=== PATIENT | female | born 1965 | race Two or more races ===

== ENCOUNTER → 2018-10-21 | Outpatient (CLI) | payer OTHER ==
[2018-07-22 11:00] VITALS: BP 160/89
[~2018-10-21] MED LIST: ACET325T9 PO; CHOL100013 PO; DEXA4TAB63 PO; DOCU-109 PO; FERR325T14 PO; LORA1TAB PO; NAPR-695 PO; OXYC1TAB15 PO; Pantoprazole PO; TAMO20TA PO; [UNRECOGNIZED DRUG - OTHER]
--- NOTE | 2018-10-21 13:32 | RAD ---
Examination: CT PELVIS WO CONTRAST History: H/O BREAST CA BONE METS BILAT HIP PAIN NO CONTRAST PREV SENT Comparison/Correlation: CT chest abdomen pelvis with contrast 07/16/2018 Findings: Axial images of pelvis were obtained without contrast. Sagittal and coronal reformatted images were provided. Fibroid uterus is noted. No pelvic free fluid. Diverticulosis of the colon identified. Appendix is normal. No enlarged pelvic lymph nodes. Urinary bladder is partially decompressed. Diffuse sclerotic and lytic metastatic involvement of the spine, pelvic bones, proximal femora again noted. Mass with pathologic fracture involves the superior right pubic symphysis is present corresponding to findings on previous exam. Longitudinal displacement of the fracture site to 0.7 cm noted and greater in the interval. Mass measures up to 2.9 cm diameter. Displaced fracture at the right inferior pubic ramus is also present. Nondisplaced fracture through the inferior aspect of the left iliac bone extends to the sacroiliac joint. This is best seen on coronal image 59 of series 4 and axial image 37 of series 2. No definite or significant soft tissue mass component of the sacrum is identified in the interval. Decreased soft tissue mass component of the right posterior column noted in the interval. Impression: Increase in displacement of the pathologic fracture involving the right superior pubic ramus since the prior exam. Mass component at this site is more evident. Right inferior pubic ramus fracture with displacement is also evident in the interval. Left lower iliac wing fracture is delineated in the interval. Previously seen soft tissue mass involvement of the superior sacrum bilaterally is significantly decreased in the interval. No significant soft tissue mass component definitely seen. Decreased soft tissue mass involvement of the right posterior column of the acetabulum. Extensive sclerotic and lytic involvement of all bony structures again noted. PQRS Compliance Statement: One or more of the following individualized dose reduction techniques were utilized for this examination: 1. Automated exposure control 2. Adjustment of the mA and/or kV according to patient size 3. Use of iterative reconstruction technique Electronically signed by: Slava Ford MD (10/21/2018 1:29 PM) [facility]
== END | disposition home or self-care (01) ==
LOC: CT 09:35
PROVIDERS: ATTEND Radiology Radiation Oncology
DX: C79.51 Secondary malignant neoplasm of bone (principal); C50.919 Malignant neoplasm of unspecified site of unspecified female breast; M84.454A Pathological fracture, pelvis, initial encounter for fracture; D25.9 Leiomyoma of uterus, unspecified; K57.30 Diverticulosis of large intestine without perforation or abscess without bleeding
CPT/HCPCS: 72192; G0463

== ENCOUNTER → 2018-11-16 | Outpatient (CLI) | payer OTHER ==
[2018-07-22 11:00] VITALS: BP 160/89
[~2018-11-16] MED LIST changes: +CONTRAST GIVEN. MC PRN; +IOHEXOL 240 MG/ML 50ML VIAL. PO ONE; +IOHEXOL 300 MG/ML 100ML VIAL. IV ONE
--- NOTE | 2018-11-17 09:47 | RAD ---
CT of the chest and abdomen with contrast, 11/16/2018: History: Metastatic breast cancer Multidetector CT imaging was performed following oral and IV administration of contrast. Comparison is made to a study from 07/16/2018. A 3.2 cm left breast mass is present. It measured 3.5 cm on the previous study. There is a 3.0 cm left axillary lymph node which measured 3.9 cm on the previous study. No mediastinal adenopathy is seen. There is a small amount of pericardial fluid extending into the superior pericardial recesses. There are multiple bilateral pulmonary nodules. Some of these are slightly smaller, for example a 5.8 mm nodule seen posterolaterally in the right lower lobe on the previous study now measures 4.9 mm. The small left pleural effusion evident on the previous study has decreased in size with only small amount of residual fluid in the posterior gutter. The small right pleural effusion has resolved. No hepatic abnormality is seen. The gallbladder is unremarkable. The pancreas shows no abnormality. The spleen is of normal size. No renal or adrenal abnormality is detected. The visualized bowel loops are unremarkable. No free fluid is evident in the abdomen. There is extensive mixed lytic and blastic osseous metastatic disease as previously described. Some of the lytic lesions have become more sclerotic, best seen along the iliac crests and in multiple vertebral bodies. Again noted are vertebral compression deformities at T12, T5 and T6. IMPRESSION: 1. The left breast mass has decreased slightly in size. 2. Left axillary adenopathy has improved. 3. Tiny bilateral pulmonary metastases persist, some of which have decreased slightly in size. 4. Resolving pleural effusions. 5. Extensive mixed lytic and blastic osseous metastatic disease, with many of the lytic lesions having become more sclerotic compatible with a component of healing. PQRS Compliance Statement: One or more of the following individualized dose reduction techniques were utilized for this examination: 1. Automated exposure control 2. Adjustment of the mA and/or kV according to patient size 3. Use of iterative reconstruction technique
--- NOTE | 2018-11-17 09:49 | RAD ---
Radionuclide bone scan, 11/16/2018: HISTORY: Breast cancer Following IV injection of 25 mCi of technetium 99m MDP, whole body imaging was performed. Comparison is made to an exam from 07/16/2018. There are numerous foci of abnormal activity in the pelvis, spine, skull, multiple ribs and long bones including both humeri and femurs. The degree of abnormal osseous uptake at these sites has increased since the previous study. The recent CT study demonstrated that many previous extensive lytic lesions are demonstrated increasing sclerosis. The current radionuclide findings suggest a flare phenomenon related to partial healing of metastasis rather than progression of disease. IMPRESSION: Multifocal osseous metastatic disease with increasing activity at multiple sites, probably representing a flare phenomena. Electronically signed by: Zack Ovalle MD (11/16/2018 4:08 PM) [facility]
== END | disposition home or self-care (01) ==
LOC: NM 08:47
PROVIDERS: ATTEND Internal Medicine Hematology & Oncology
DX: C79.51 Secondary malignant neoplasm of bone (principal); C78.00 Secondary malignant neoplasm of unspecified lung; C50.919 Malignant neoplasm of unspecified site of unspecified female breast; J90 Pleural effusion, not elsewhere classified; M43.8X4 Other specified deforming dorsopathies, thoracic region; R91.8 Other nonspecific abnormal finding of lung field; R59.0 Localized enlarged lymph nodes
CPT/HCPCS: 71260; 74160; 78306; A9503; Q9966; Q9967

== ENCOUNTER → 2019-02-09 | Outpatient (CLI) | payer OTHER ==
[2018-07-22 11:00] VITALS: BP 160/89
[~2019-02-09] MED LIST changes: -IOHEXOL 240 MG/ML 50ML VIAL. PO ONE; +OXYC1TAB19 PO
--- NOTE | 2019-02-09 11:23 | RAD ---
EXAM: CT Chest, Abdomen and Pelvis with IV contrast CLINICAL HISTORY: Breast cancer, follow-up COMPARISON: CT 11/16/2018, 07/16/2018 TECHNIQUE: Helical CT of the chest, abdomen and pelvis was performed following the administration of intravenous contrast. Axial, coronal and sagittal reformatted images were generated. ---PQRS compliance statement - One or more of the following individualized dose reduction techniques were utilized for this study: 1. Automated exposure control 2. Adjustment of the mA and/or kV according to patient size 3. Use of iterative reconstruction technique--- FINDINGS: Chest: Heart is not enlarged. No pericardial effusion. No mediastinal or hilar lymphadenopathy. No right axillary lymphadenopathy. Enlarged left axillary lymph node measures 2.7 x 2.6 cm, previously when measured in a similar fashion measures 3 x 2.4 cm. Differences may be related to scan plane. Left breast mass measures 3 x 2.3 cm, previously 3.2 x 2.3 cm. Again this is likely stable and differences may be related to scan plane. Small left pleural effusion. No pneumothorax. Central airways are grossly patent. Numerous bilateral lung nodules are seen, measuring 6 mm or less in size and grossly stable. For example a right lower lobe lung nodule measures 5 mm (series 2 image 32), stable. Abdomen and Pelvis: Relative hepatic hypoattenuation may be seen with hepatic steatosis. Gallbladder is normal. No biliary ductal dilatation. Pancreas is unremarkable. Spleen is normal in appearance. Adrenal glands are unremarkable. Symmetric nephrograms. No focal renal lesion. No hydronephrosis. No hydroureter. Diffuse bladder wall thickening may be seen with cystitis. No abdominal or pelvic lymphadenopathy. Atherosclerotic calcifications of the main branches are seen. A relatively hypodense left uterine lesion measures up to 3 cm, possibly degenerating fibroid given the dense calcifications or adnexal cystic structure Bones: Numerous lytic and sclerotic lesions are seen throughout the visualized osseous structures consistent with metastatic disease. Associated pathologic fracture of the right superior pubic ramus and pubic body is unchanged. Multiple subacute to chronic left rib fractures are seen. Height loss at multiple vertebral bodies is grossly stable, pathologic compression fractures. IMPRESSION: 1. The left breast mass and enlarged left axillary lymph node are grossly stable in size accounting for differences in scan plane/technique. 2. No mediastinal or hilar lymphadenopathy. No abdominal or pelvic lymphadenopathy. 3. Numerous bilateral lung nodules are stable in size. 4. Small left pleural effusion. 5. Diffuse bladder wall thickening may be seen with cystitis. 6. Hepatic hypoattenuation may be seen with hepatic steatosis. 7. Degenerating uterine fibroid versus adnexal cystic lesion. 8. s numerous lytic and blastic skeletal lesions with pathologic fractures of the right superior pubic ramus/pubic body, several left ribs and multiple vertebral bodies are grossly unchanged. Electronically signed by: Paul Muller MD (02/09/2019 11:21 AM) [facility]
--- NOTE | 2019-02-09 14:38 | RAD ---
Nuclear medicine whole body bone scan History: Breast cancer, complains of back pain. Comparison: Whole-body bone scan November 16, 2018 and July 16, 2018. CT chest abdomen pelvis with contrast, February 09, 2019. Technique: Examination performed after intravenous administration of 25 mCi Technetium 99m MDP. Images of the whole body were obtained in the anterior and posterior projections. Findings: Numerous foci of increased tracer uptake of the calvarium, proximal appendicular skeleton, pelvis, thoracolumbar spine, scapulae, and multiple ribs are redemonstrated. The extent of involvement has increased from prior study. There is only faint tracer uptake in the kidneys and soft tissues compatible with SuperScan appearance. IMPRESSION: Interval worsening of diffuse osteoblastic metastases. Electronically signed by: Romeo Tierney MD (02/09/2019 2:35 PM) [email or web address]
== END | disposition home or self-care (01) ==
LOC: NM 14:17
PROVIDERS: ATTEND Internal Medicine Hematology & Oncology
DX: C79.51 Secondary malignant neoplasm of bone (principal); C50.919 Malignant neoplasm of unspecified site of unspecified female breast; J90 Pleural effusion, not elsewhere classified; N63.20 Unspecified lump in the left breast, unspecified quadrant; R59.0 Localized enlarged lymph nodes; R91.8 Other nonspecific abnormal finding of lung field; M84.454D Pathological fracture, pelvis, subsequent encounter for fracture with routine healing; M84.48XD Pathological fracture, other site, subsequent encounter for fracture with routine healing
CPT/HCPCS: 71260; 74177; 78306; A9503; Q9967

== ENCOUNTER → 2019-07-06 | Outpatient (CLI) | payer OTHER ==
[2018-07-22 11:00] VITALS: BP 160/89
[~2019-07-06] MED LIST changes: +ANAS1TAB47 PO; +CALC-98 PO; -IOHEXOL 300 MG/ML 100ML VIAL. IV ONE; +LORA-434 PO; +OXYC-411 PO
[2019-07-06] MEDS: IOHEXOL 240 MG/ML 50ML VIAL. PO ONE (09:00)
[2019-07-06] MEDS: IOHEXOL 300 MG/ML 100ML VIAL. IV ONE (09:00)
--- NOTE | 2019-07-07 09:25 | RAD ---
Examination: CT CHEST ABD PELVIS W/CONTRAST History: Metastatic breast cancer Comparison/Correlation: 02/09/2019 CT chest abdomen and pelvis with contrast Findings: Axial images of the chest, abdomen, and pelvis were obtained following IV contrast. Oral contrast was also administered. Sagittal and coronal reformatted images were provided. Very small pleural effusions are present. No new enlarged thoracic lymph nodes. Posterolateral right superior apical 0.35 cm diameter nodule abuts the pleura and is increased in size and interval. Multiple punctate nodules in both lung garcia are again noted. Right lower lung field 0.6 cm diameter nodule is present and appears slightly increased previous exam although calcification is noted within it. Left breast mass is again identified without significant change in size measuring up to 3 cm in maximum diameter by 2 cm in the axial plane. Enlarged left axillary lymph node again identified measuring up to 2.5 cm in diameter without unchanged. Liver, spleen, pancreas, adrenal glands, and kidneys are normal. The gallbladder fossa is unremarkable. No enlarged abdominal or pelvic lymph nodes. Fibroid involvement of the uterine fundus noted. No enlarged abdominal or pelvic lymph nodes. Moderate quantity of stool in colon noted. No ascites or pelvic free fluid. Extensive sclerotic and lytic bony metastases throughout are noted. Old rib fractures are present. Old right pubic ring fracture noted. Compression deformities of vertebral bodies at multiple levels of the thoracic and lumbar spine again noted. Impression: Very small pleural effusions. Increased size of a right posterolateral superior apical pulmonary nodule abutting the pleura. No change in left breast mass with left axillary enlarged lymph node. Extensive lytic and sclerotic bony metastases again seen without definite change. Old fractures again seen. PQRS Compliance Statement: One or more of the following individualized dose reduction techniques were utilized for this examination: 1. Automated exposure control 2. Adjustment of the mA and/or kV according to patient size 3. Use of iterative reconstruction technique Electronically signed by: Slava Ford MD (07/07/2019 9:22 AM) [facility]
--- NOTE | 2019-07-07 09:31 | RAD ---
Examination: BONE SCAN WHOLE BODY History: Breast cancer with metastases Comparison/Correlation: 02/09/2019 whole-body bone scan Findings: 25 mCi technetium 99m MDP was intravenously administered for purposes of total body bone scintigraphy. Numerous foci of uptake involving bony structures again noted involving numerous sites of the axial skeleton as well as appendicular skeleton. Multiple sites of intense uptake involving the ribs noted bilaterally mild increase in extent of uptake involving the lower ribs noted while there is slight increase in uptake of the upper ribs. There is increased uptake involving the right humerus diffusely in the interval. Increased uptake involving the left proximal and mid humeral shaft actually sites noted. Significant increase uptake involving the right and left femoral shafts noted. Uptake involving the lower thoracic spine is slightly improved. Uptake involving lumbar spine is similar to previous exam. No definite uptake involving the kidneys or urinary bladder. Impression: Increase osteoblastic metastatic involvement of the humeral shaft bilaterally. Increased uptake involving the femoral shaft bilaterally and lower ribs bilaterally. Mild improvement in uptake involving the lower thoracic spine and decreased uptake of upper ribs. Lack of uptake of radiotracer involving kidneys and urinary bladder compatible with superscan noted in the interval. Electronically signed by: Slava Ford MD (07/07/2019 9:28 AM) [facility]
== END | disposition home or self-care (01) ==
LOC: NM 09:51
PROVIDERS: ATTEND Internal Medicine Hematology & Oncology
DX: C79.51 Secondary malignant neoplasm of bone (principal); C50.912 Malignant neoplasm of unspecified site of left female breast; J90 Pleural effusion, not elsewhere classified; N63.20 Unspecified lump in the left breast, unspecified quadrant; R91.8 Other nonspecific abnormal finding of lung field; R59.0 Localized enlarged lymph nodes
CPT/HCPCS: 71260; 74177; 78306; A9503; Q9966; Q9967

== ENCOUNTER → 2019-09-10 | Outpatient (CLI) | payer OTHER ==
[2018-07-22 11:00] VITALS: BP 160/89
[~2019-09-10] MED LIST changes: -CONTRAST GIVEN. MC PRN; +IOHEXOL 240 MG/ML 50ML VIAL. PO ONE; +IOHEXOL 300 MG/ML 100ML VIAL. IV ONE
--- NOTE | 2019-09-10 11:48 | RAD ---
CT CHEST ABD PELVIS W/CONTRAST Indication: Breast cancer Technique: Postcontrast CT imaging was performed of the chest, abdomen, pelvis, multiplanar reconstruction images submitted. Oral contrast was also given. One or more of the following individualized dose reduction techniques were utilized for this examination: 1. Automated exposure control 2. Adjustment of the mA and/or kV according to patient size 3. Use of iterative reconstruction technique. Comparison: July 06, 2019; February 09, 2019 CHEST: Findings: Very small dependent pleural effusions bilaterally are somewhat larger. There is new focus of subpleural nodular density of the left upper lobe posteriorly image 9 series 2 about 1.8 cm transverse by 1.3 cm AP. Left lower lobe nodule image 46 series 2 up to about 1.2 cm is larger as previously about 0.9 cm on the June exam. There are multiple other scattered nodules bilaterally which overall more numerous and larger than the [place] exam. For example a dominant right lower lobe nodules image 31 series 2 measures about 0.6 cm versus previously 0.5 cm and another right lower lobe nodule about 0.5 cm versus previously 0.4 cm image 30. Left axillary greg mass about 2.2 cm AP by 2.1 cm transverse is smaller than [place] exam when measured about 2.7 cm AP by 2.6 cm transverse. There is again evidence of extensive osseous metastatic disease. Vertebral body stature is unchanged compared with more recent exam, again degree of height loss of T12, T6, T5 and T2 (progression of T2 vertebral body height loss since the January exam). There is again pathologic fracture of the lateral aspect of left clavicle as seen on more recent exam although developed since the [place] exam. IMPRESSION: 1. There is a new left upper lobe pulmonary nodule, overall size and number pulmonary nodules greater than [place] exam. Very small bilateral pleural effusions are somewhat larger. There is similar left breast mass, left axillary greg mass smaller than the [place] exam. 2. There is again evidence of extensive osseous metastatic disease, multilevel or atrophy vertebral body height loss similar to more recent exam although has progressed at T2 since older exam. There is pathologic fracture of the lateral aspect of the left clavicle. Abdomen pelvis FINDINGS: No new focal abnormality is identified of the liver, pancreas, or spleen. Gallbladder is present without obvious intraluminal abnormality by CT. There is no new adrenal nodularity. Both kidneys enhance, no hydronephrosis. Bowel is not significantly dilated. There is no free fluid or free air. There is again diverticulosis of the descending and sigmoid colon and variable retained stool in the colon. There is partially calcified mass of the left uterus as seen previously. This appearance of degree of urinary bladder wall thickening as seen previously. There is again evidence of extensive osseous metastatic disease. There is old fracture deformity of the right pubic body as seen previously. Vertebral body stature is unchanged. IMPRESSION: 1. There is again evidence of extensive osseous metastatic disease. No new abnormality is identified of the abdomen or pelvis. 2. There is again partially calcified left uterine mass which may be a fibroid. Electronically signed by: Germain Paniagua MD (09/10/2019 11:45 AM) [id number]
--- NOTE | 2019-09-10 15:21 | RAD ---
Whole body bone scan History: 54-year-old woman with history of breast cancer and low back pain and upper back pain. History of right pelvic fracture or degenerative 2019 with no known injury. Comparison: Chest abdomen pelvis CT performed same day. Procedure: 25 mCI of Tc 99m MDP was injected intravenously and delayed scintigraphic images were obtained of the skeletal system. Findings: Diffuse mottled uptake throughout the skeletal system is present including both the axial and appendicular skeleton but most conspicuously in the upper lumbar spine at the approximate L2 and L3 levels. Additional imaging of the pelvis reveals uptake in the right iliac wing and along bilateral sacroiliac joints. Overall pattern of uptake on bone scan corresponds with the diffuse mottled sclerosis evidence on CT and is most suggestive of metastatic disease although superimposed acute fractures would be difficult to exclude.. Impression: 1. Extensive osseous metastases. Electronically signed by: Cesario Rey MD (09/10/2019 3:18 PM) [id number]
== END | disposition home or self-care (01) ==
LOC: NM 08:43
PROVIDERS: ATTEND Internal Medicine Hematology & Oncology
DX: C50.912 Malignant neoplasm of unspecified site of left female breast (principal); C79.51 Secondary malignant neoplasm of bone; N85.8 Other specified noninflammatory disorders of uterus; M84.412A Pathological fracture, left shoulder, initial encounter for fracture; K57.30 Diverticulosis of large intestine without perforation or abscess without bleeding; J90 Pleural effusion, not elsewhere classified; R91.1 Solitary pulmonary nodule; R91.8 Other nonspecific abnormal finding of lung field
CPT/HCPCS: 71260; 74177; 78306; A9503; Q9966; Q9967

== ENCOUNTER → 2020-02-09 | Outpatient (CLI) | payer OTHER ==
[2018-07-22 11:00] VITALS: BP 160/89
[~2020-02-09] MED LIST changes: +CONTRAST GIVEN. MC PRN; -OXYC-411 PO; +OXYC1TAB20 PO
--- NOTE | 2020-02-09 13:34 | RAD ---
CT CHEST ABD PELVIS W/CONTRAST Indication: Metastatic breast cancer Technique: Postcontrast CT imaging was performed of the chest, abdomen, pelvis, multiplanar reconstruction images submitted. Oral contrast was also given. One or more of the following individualized dose reduction techniques were utilized for this examination: 1. Automated exposure control 2. Adjustment of the mA and/or kV according to patient size 3. Use of iterative reconstruction technique. Comparison: September 10, 2019. CHEST: Findings: The previously seen pulmonary nodules are overall smaller and less numerous. More largest residual right lower lobe nodules measures about 0.4 to 0.5 cm images 32 series 2, previously about 0.7 cm largest nodule right upper lobe measures about 0.4 cm image 33, previously about 0.5 cm. Previously seen new focus of subpleural left upper lobe density near the apex has resolved. No new pulmonary nodularity is identified. There is no significant pleural pericardial fluid or pneumothorax. There is no new infiltrate. There is again evidence of extensive osseous metastatic disease. There is again degree of height loss T12, T6, T5, T2 vertebral bodies as seen previously. There is again fracture of the left lateral clavicle. No new significant chest lymphadenopathy is identified. There is again large left axillary greg mass about 2 cm AP by 2.1 cm transverse by 3 cm cc, not significantly changed. Left breast mass about 2.7 cm x 1.8 cm and axial oblique dimensions is similar. There is again enlargement of the left thyroid gland with intrathoracic extent. IMPRESSION: 1. Previously seen pulmonary nodules are smaller and less numerous. There is no new chest lymphadenopathy, similar enlarged left axillary greg mass. There is similar left breast mass. 2. There is again extensive osseous metastatic disease. There is similar degree of thoracic vertebral body height loss. Abdomen pelvis FINDINGS: No new abnormality is identified of the liver, spleen, or pancreas. Both kidneys enhance, no hydronephrosis. There is no adrenal nodularity. Bowel is not dilated. There is no new free fluid or free air. There is again partially calcified uterine lesion. There is variable retained stool in the colon. There is again extensive osseous metastatic disease. Lumbar vertebral body stature is similar. There is again old fracture of the right pubic body/right superior pubic ramus. IMPRESSION: 1.There is again extensive osseous metastatic disease. There is no CT evidence of new metastatic disease to the abdomen or pelvis. 2. There is again partially calcified uterine mass, likely fibroid. Electronically signed by: Germain Paniagua MD (02/09/2020 1:31 PM) [id number]
--- NOTE | 2020-02-09 16:59 | RAD ---
Whole-body bone scan INDICATION: 55-year-old woman with metastatic breast cancer. COMPARISON: Whole body bone scan 09/10/2019 TECHNIQUE: Following an appropriate delay after IV administration of 26 mCi of technetium labeled MDP radiopharmaceutical (3 hours), imaging of the skeletal system was performed in the anterior and posterior planes. FINDINGS: Similar pattern of diffuse skeletal uptake in both the axial and appendicular skeleton is present, most conspicuously in the upper lumbar spine at approximately L2 on L3 as well as in the right humeral shaft and bilateral proximal femoral shafts. No new abnormal foci of uptake identified. IMPRESSION: Similar findings of diffuse osseous metastatic disease. Electronically signed by: Cesario Rey MD (02/09/2020 4:56 PM) [id number]
== END | disposition home or self-care (01) ==
LOC: NM 09:59
PROVIDERS: ATTEND Internal Medicine Hematology & Oncology
DX: C50.919 Malignant neoplasm of unspecified site of unspecified female breast (principal); R91.1 Solitary pulmonary nodule; N63.20 Unspecified lump in the left breast, unspecified quadrant; E04.9 Nontoxic goiter, unspecified; N85.9 Noninflammatory disorder of uterus, unspecified; M48.16 Ankylosing hyperostosis [Forestier], lumbar region
CPT/HCPCS: 71260; 74177; 78306; A9503; Q9966; Q9967

== ENCOUNTER → 2020-06-07 | Outpatient (CLI) | payer OTHER ==
[2018-07-22 11:00] VITALS: BP 160/89
--- NOTE | 2020-06-07 15:33 | RAD ---
EXAM: CT Chest, Abdomen and Pelvis with IV contrast CLINICAL HISTORY: Reason: breast cancer / Spl. Instructions: omni 300 75ml omni 240 50ml / History: COMPARISON: None. TECHNIQUE: Helical CT of the chest, abdomen and pelvis was performed following the administration of intravenous contrast. Axial, coronal and sagittal reformatted images were generated. ---PQRS compliance statement - One or more of the following individualized dose reduction techniques were utilized for this study: 1. Automated exposure control 2. Adjustment of the mA and/or kV according to patient size 3. Use of iterative reconstruction technique--- FINDINGS: Chest: Heart is mildly enlarged. Physiologic pericardial fluid. Trace pleural effusions bilaterally. No pneumothorax. Asymmetric enlargement of the left thyroid without discrete dominant mass is stable in appearance. No mediastinal or hilar lymphadenopathy. Left breast mass measures 2.5 x 1.8 x 2.3 cm, essentially stable. A left axillary greg mass measures approximately 3 x 1.5 cm, previously 3 x 1.6 cm when remeasured in a similar fashion on the coronal planes. No new axillary lymphadenopathy. Multiple bilateral lung nodules are again seen. 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 5 mm right upper lobe lung nodule (series 2 image 30) is stable. 4 mm peripheral left lower lobe lung nodule (series 2 image 43) is new. Abdomen and Pelvis: Liver and biliary system: No focal liver lesion. Liver is mildly enlarged measuring 19.3 cm in length. Gallbladder is normal. No biliary ductal dilatation. Spleen: Unremarkable Pancreas: Unremarkable Adrenal glands: Unremarkable Kidneys: Symmetric nephrograms. No focal renal lesion. No hydronephrosis. No hydroureter. Bladder wall thickening, likely cystitis. Lymph nodes/retroperitoneum: No abdominal or pelvic lymphadenopathy. Vessels: Aorta is normal in caliber with intermittent atherosclerotic calcifications. Bowel/Peritoneal cavity: Sigmoid diverticulosis without evidence for acute diverticulitis. Moderate right colonic stool content. No bowel obstruction. Definite pericecal inflammatory changes are seen. Calcified uterine fibroids are noted. No abdominal or pelvic ascites. Findings: Extensive blastic osseous metastatic disease. Left acetabular lucent lesion has increased in size measuring 2.4 x 2.1 cm, previously 1.9 x 1.8 cm, now with articular cortex violation and soft tissue component, new. Additional lucent lesions are seen, some of which have increased in size, for instance in the right clavicle and sternum. Chronic left clavicle fracture. Multiple pathologic chronic appearing left rib fractures are again seen. Old right pubic rami fractures without discrete bony bridging, stable. Stable vertebral body height loss. IMPRESSION: 1. Stable left breast and left axillary greg mass. 2. Multiple bilateral lung nodules are stable, although a single new 4 mm peripheral left lower lobe lung nodule is seen. Recommend close attention on follow-up. 3. Blastic metastatic disease is essentially stable however several lucent/lytic lesions have increased in size. The left acetabular lucent lesion is most prominent, now with soft tissue extension, suggesting progression of osseous metastatic disease. 4. Bladder wall thickening, likely cystitis. Electronically signed by: Paul Muller MD (06/07/2020 3:30 PM) SHANON
--- NOTE | 2020-06-07 16:59 | RAD ---
Examination: BONE SCAN WHOLE BODY History: Breast cancer Comparison/Correlation: 02/09/2020 bone scan Findings: 25 mCi technetium 99m MDP was intravenously administered for purposes of whole body bone scintigraphy. Extensive radiotracer uptake of tracer involving the cranium, bilateral upper and lower extremities particularly at the proximal aspects, ribs, and spine as well as pelvis again seen. There is especially intense confluent uptake at the right humerus, upper thoracic spine, and L2-3 vertebral bodies. Small focus of uptake at the left seventh rib uptake laterally is evident compared to previous exam and may be technique related. Kidneys and urinary bladder are not visualized. Impression: No significant change in extensive bony metastatic findings. Findings of SuperScan. Electronically signed by: Slava Ford MD (06/07/2020 4:57 PM) [id number]
== END ==
LOC: NM 09:14
PROVIDERS: ATTEND Internal Medicine Hematology & Oncology
DX: C50.919 Malignant neoplasm of unspecified site of unspecified female breast (principal); J90 Pleural effusion, not elsewhere classified; R91.8 Other nonspecific abnormal finding of lung field; R16.0 Hepatomegaly, not elsewhere classified
CPT/HCPCS: 71260; 74177; 78306; A9503; Q9966; Q9967

== ENCOUNTER → 2020-06-21 | Outpatient (CLI) | payer OTHER ==
[2018-07-22 11:00] VITALS: BP 160/89
[~2020-06-21] MED LIST changes: -CONTRAST GIVEN. MC PRN; -IOHEXOL 240 MG/ML 50ML VIAL. PO ONE; -IOHEXOL 300 MG/ML 100ML VIAL. IV ONE
--- NOTE | 2020-06-21 17:19 | KCIC ---
AP pelvis to include lateral radiographs of the left hip 06/21/2020 CLINICAL HISTORY: Left hip pain. History of metastatic breast cancer. An AP standing digital radiograph of the pelvis to include both hips along with a lateral digital rad iograph of the left hip was performed. Comparison is made to patient's CT scan of the pelvis dated . No pelvic bone fracture is seen. Both hips are intact. Specifically no fracture or dislocation of the left hip is seen. Mixed lytic and sclerotic lesions are seen throughout the bony pelvis and visualiz ed femur is consistent with metastasis are again seen. IMPRESSION: Mixed lytic/sclerotic metastasis are seen throughout the pelvis and visualized femurs as discussed above. No acute osseous abnormality is seen. Electronically signed by: Armani Trinidad MD (06/21/2020 5:17 PM) [id number]
--- NOTE | 2020-06-22 01:37 | KCIC ---
4 view cervical spine dated 06/21/2020. No comparison available. Clinical data indication: Pain and limited range of motion. History of breast cancer. FINDINGS: AP, lateral and odontoid views obtained. Sagittal alignment is anatomic. There is mild flattening of the cervical vertebral bodies with large anterior osteophytes. There is mixed lytic and sclerotic mary nges throughout all visualized bone including the skull. No malalignment. Moderate facet arthropathy. IMPRESSION: 1. Extensive osseous metastatic disease. 2. Moderate multilevel cervical spondylosis with prominent anterior osteophytes. Diffuse idiopathic s keletal hyperostosis (DISH). Electronically signed by: Ken Chaudhry MD (06/22/2020 1:35 AM) [facility]
== END ==
LOC: KCIC 15:19
PROVIDERS: ATTEND Nurse Practitioner Gerontology
DX: C79.51 Secondary malignant neoplasm of bone (principal); C80.1 Malignant (primary) neoplasm, unspecified; M48.12 Ankylosing hyperostosis [Forestier], cervical region; M47.812 Spondylosis without myelopathy or radiculopathy, cervical region; M25.78 Osteophyte, vertebrae; Z85.3 Personal history of malignant neoplasm of breast
CPT/HCPCS: 72040; 73501

== ENCOUNTER → 2020-08-24 | Outpatient (CLI) | payer OTHER ==
[2018-07-22 11:00] VITALS: BP 160/89
[~2020-08-24] MED LIST changes: +GADOTERATE 7.5 MMOL/15ML VIAL. IVP ONE
--- NOTE | 2020-08-26 09:44 | RAD ---
MRI of the cervical spine without and with contrast 08/24/2020 CLINICAL HISTORY: Neck pain. History of breast cancer. TECHNIQUE: Unenhanced T1-weighted, T2-weighted and inversion recovery sagittal and gradient echo, T1- weighted and T2-weighted axial images of the cervical spine were obtained. After the intravenous admi nistration of 15 cc of Clariscan, enhanced T1-weighted sagittal and axial images of the cervical spin e were obtained. FINDINGS: Comparison is made to the patient's radiographs of the cervical spine dated 06/21/2020. Minimal lateral curvature of the cervical spine is seen convex to the right. There is straightening o f the normal cervical lordosis. Extensive metastasis are seen throughout the cervical and visualized thoracic vertebra along with visualized skull base and manubrium. These demonstrate variable enhancem ent. Compression deformity of the C6, C7, T2, T5 and T6 vertebral bodies is seen. No retropulsion of tumor or bone fragments into the central spinal canal is noted. No acute compression fracture of the cervical vertebrae is seen. A 1.8 cm metastasis is seen involving the left aspect of the T1 vertebral body. This extends into the left anterior epidural space and mildly narrowing the left T1-2 neural f oramen without impinging upon the thoracic spinal cord. Degenerative signal changes and loss of heigh t are seen involving all of the disks of the cervical spine. No area of abnormal signal intensity see n involving the cervical spinal cord. At the C2-3 disc space there is a mild generalized disc bulge. Degenerative changes are seen involvin g the uncovertebral and facet joints bilaterally. These findings do not result in significant central spinal canal or neural foraminal stenosis. At the C3-4 disc space there is a mild generalized disc bulge. Degenerative changes are seen involvin g the uncovertebral and facet joints bilaterally. These findings efface the anterior and posterior CS F sulci in mild central spinal canal stenosis without significant cord impingement. No neural foramin al stenosis is seen. At the C4-5 disc space there is a mild generalized disc bulge. Degenerative changes are seen involvin g the uncovertebral and facet joints bilaterally. Efface the anterior and posterior CSF resulting in mild central spinal canal stenosis without evidence of cord impingement. No neural foraminal stenosis is seen. At the C5-6 disc space there is a minimal generalized disc bulge. Degenerative changes are seen invol ving the uncovertebral and facet joints bilaterally. These findings do not result in significant cent ral spinal canal or neural foraminal stenosis. At the C6-7 disc space there is a minimal generalized disc bulge. Degenerative changes are seen invol ving the uncovertebral and facet joints bilaterally. These findings do not result in significant cent ral spinal canal or neural foraminal stenosis. C7-T1 disc space there is a minimal generalized disc bulge. Degenerative changes are seen involving t he facet joints bilaterally. These findings do not result in significant central spinal canal or neur al foraminal stenosis. IMPRESSION: 1. Findings are seen consistent with extensive metastatic disease throughout the cervical and visuali zed thoracic vertebrae. A metastasis at T1-2 mildly narrows the left T1-2 neural foramen. No extensio n of tumor to impinge upon the cervical spinal cord is seen. 2. Degenerative changes are seen throughout the cervical spine. These findings result in mild central spinal canal stenosis at C3-4 and C4-5 without evidence of cord impingement. Electronically signed by: Armani Trinidad MD (08/26/2020 9:42 AM) [id number]
--- NOTE | 2020-08-26 10:10 | RAD ---
MRI of the brain and orbits without and with contrast 08/25/2020 CLINICAL HISTORY: Metastatic breast cancer, headaches, dizziness, and left eye pain. TECHNIQUE: Unenhanced T1-weighted sagittal and axial, T2-weighted axial and coronal and FLAIR, gradie nt echo and diffusion-weighted axial images of the brain were obtained. Thin section fat saturated T2 -weighted and T1-weighted axial and coronal images of the orbits were obtained. After the intravenous administration of 15 cc of Clariscan, enhanced T1-weighted sagittal axial coronal images of the brai n were obtained. Fat-saturated thin section T1-weighted axial and coronal images through the orbits w ere obtained. FINDINGS: The ventricles are within normal limits in size and configuration. Patchy and several small focal areas of increased signal intensity are seen within the periventricular and subcortical white matter of both cerebral hemispheres on the FLAIR and T2-weighted images consistent with areas of very mild small vessel ischemic disease. No acute parenchymal abnormality is seen. No extra-axial fluid collection is noted. There is no evide nce of acute ischemia/infarction. No definite area of abnormal parenchymal contrast enhancement is se en. Innumerable metastasis are seen throughout the skull to include the skull base and visualized cervica l vertebrae. These measure 3 mm to 3.8 cm in size. The clivus is expanded. Tumor extends from clivus laterally to encase and extrinsically narrow the cavernous right internal carotid artery. Diffuse dur al enhancement and thickening is seen surrounding the brain. Symmetric metastasis are seen lateral to the anterior orbits which measure 1.2 cm in size. A metastas is is seen involving the right anterior clinoid process which extends to narrow the right orbital ape x. This measures 1 cm in size. A 2 cm metastasis is seen involving the superior lateral wall of the p osterior aspect of the left orbit. No intraconal mass is seen. The globes, extraocular muscles, optic nerve sheath complexes and optic chiasm are within normal limits. Mild mucosal thickening in seen scattered throughout the paranasal sinuses. There is a small right ma stoid effusion. A large left mastoid effusion is seen. Normal flow voids are seen within the major va scular structures surrounding the brain parenchyma. IMPRESSION: Innumerable metastasis are seen throughout the skull, skull base, orbits and visualized c ervical vertebrae as discussed above. Diffuse dural thickening and enhancement is noted. No acute par enchymal abnormality is seen. No intraconal mass lesion is seen involving either orbit. Electronically signed by: Armani Trinidad MD (08/26/2020 10:08 AM) [id number]
== END ==
LOC: MRI 13:33
PROVIDERS: ATTEND Internal Medicine Hematology & Oncology
DX: C50.919 Malignant neoplasm of unspecified site of unspecified female breast (principal); M47.813 Spondylosis without myelopathy or radiculopathy, cervicothoracic region; H53.8 Other visual disturbances; R51.9 Headache, unspecified; R42 Dizziness and giddiness
CPT/HCPCS: 70543; 70553; 72156; A9575

== ENCOUNTER → 2020-09-05 | Outpatient (CLI) | payer OTHER ==
[2018-07-22 11:00] VITALS: BP 160/89
[~2020-09-05] MED LIST changes: -GADOTERATE 7.5 MMOL/15ML VIAL. IVP ONE; +IOHEXOL 240 MG/ML 50ML VIAL. PO ONE; +IOHEXOL 300 MG/ML 100ML VIAL. IV ONE
--- NOTE | 2020-09-05 14:35 | RAD ---
EXAM: Nuclear bone scan. HISTORY: Breast cancer restaging.. TECHNIQUE: Following the intravenous injection of 25.1 mCi of Tc 99m labeled methylene diphosphonate (MDP), whole body imaging was performed. COMPARISON: CT obtained on the same date and bone scan dated 06/07/2020. FINDINGS: There are scattered areas of abnormal radiotracer activity throughout the calvarium, bilate ral upper and lower extremities, bony pelvis, multiple ribs, the upper thoracic spine and upper lumba r spine, similar compared to the prior study osseous metastatic disease. The maximum uptake is seen w ithin L2 and L3, stable in appearance. There is tracer activity within the bladder. IMPRESSION: No significantly change in diffuse osseous metastatic disease. Electronically signed by: Monalisa Varma MD (09/05/2020 2:33 PM) [id number]
--- NOTE | 2020-09-05 16:29 | RAD ---
EXAM: Chest, abdomen and pelvis CT with intravenous contrast. HISTORY: Breast cancer restaging. TECHNIQUE: Computed tomographic images of the chest, abdomen and pelvis were obtained following the a dministration of intravenous contrast. Multiplanar reformatting was performed. *One or more of the following individualized dose reduction techniques were utilized for this examina tion: 1. Automated exposure control. 2. Adjustment of the mA and/or kV according to patient size. 3. Use of iterative reconstruction technique. COMPARISON: 06/07/2020. FINDINGS: Chest: There is a stable 2.5 cm nodule with adjacent distortion and thickening of the overlying skin within the superior left breast. There is also a stable nodule within the left axilla measuring 2.1 c m. The heart is mildly enlarged. There has been slight interval increase in a small pericardial effus ion. There is no mediastinal or hilar lymphadenopathy. There is a heterogeneous enlarged left thyroid lobe. No discrete nodule is seen. There is no pneumothorax. There is no pleural effusion. There are chronic appearing interstitial grant ges. There are several small bilateral pulmonary nodules. The largest of these measure 7 mm within th e right lower lobe and 6 mm within the left lower lobe. These are increased compared to the prior exa m. There is posterior dependent and basilar atelectasis. There is diffuse osseous metastatic disease. There are lesions involving essentially the entire visua lized axial and appendicular skeleton. There are chronic appearing pathologic fractures involving mul tiple thoracic and upper lumbar vertebral segments. These are very similar compared to the prior exam . There is a destructive lesion involving the manubrium. There is a destructive lesion involving the inferior tip of the left scapula. There are chronic appearing rib fractures and a few destructive rib lesions with pathologic fractures, stable in appearance. Abdomen and pelvis: There are multiple hepatic metastases. The largest of these measures approximatel y 1.4 cm within the right hepatic lobe. The gallbladder is unremarkable. There is a small incidental proximal jejunal diverticulum. The pancreas, spleen and adrenal glands are unremarkable. The kidneys are unremarkable. No abnormally thickened or dilated loop of bowel seen. There is colonic diverticulo sis. There are calcified uterine fibroids. The bladder is unremarkable. The adnexal regions are unrem arkable. There is aortobiiliac atherosclerosis. There is diffuse osseous metastatic disease. There ar e chronic appearing pathologic fractures involving multiple lumbar vertebral segments. There is also a pathologic fracture involving the right superior pubic ramus. IMPRESSION: 1. Diffuse osseous metastatic disease. This is similar in appearance compared to the prior study. The re are associated chronic appearing pathologic fractures, described above. 2. Hepatic metastatic disease, new compared to the prior exam. There are approximately 7 ill-defined measurable lesions. 3. Increase in bilateral pulmonary nodules, concerning for progressive metastatic disease. The larges t of these measures 7 mm within the right lower lobe. 4. Stable left breast and axillary nodules and anterior breast skin thickening and distortion. Correl ate with mammography and sonography findings. 5. Colonic diverticulosis. 6. Heterogeneous enlarged thyroid. No discrete nodule is seen. 7. Slight interval increase in a small pericardial effusion. Electronically signed by: Monalisa Varma MD (09/05/2020 4:27 PM) [id number]
== END ==
LOC: NM 15:24
PROVIDERS: ATTEND Internal Medicine Hematology & Oncology
DX: C50.919 Malignant neoplasm of unspecified site of unspecified female breast (principal); C79.51 Secondary malignant neoplasm of bone; E04.9 Nontoxic goiter, unspecified; R91.1 Solitary pulmonary nodule; K57.30 Diverticulosis of large intestine without perforation or abscess without bleeding; I31.3 Pericardial effusion (noninflammatory)
CPT/HCPCS: 71260; 74177; 78306; A9503; Q9966; Q9967

== ENCOUNTER → 2020-11-21 | Outpatient (CLI) | payer OTHER ==
[2018-07-22 11:00] VITALS: BP 160/89
[~2020-11-21] MED LIST changes: +GADOTERATE 7.5 MMOL/15ML VIAL. IVP ONE; -IOHEXOL 240 MG/ML 50ML VIAL. PO ONE; -IOHEXOL 300 MG/ML 100ML VIAL. IV ONE
--- NOTE | 2020-11-21 17:04 | KCIC ---
MRI of the brain/orbits without and with contrast 11/21/2020 CLINICAL HISTORY: Metastatic breast cancer with headaches and skull based metastasis. TECHNIQUE: Diffusion-weighted axial, T1-weighted sagittal and FLAIR axial images of the brain were ob tained. Thin section fat saturated T1-weighted axial and coronal and T2-weighted coronal images throu gh the orbits were obtained. After the intravenous administration of 15 cc of Clariscan, enhanced T1- weighted axial images of the brain were obtained. Thin section fat saturated T1-weighted axial and co keke images through the orbits were obtained. FINDINGS: Comparison studies are dated 08/24/2020 and 08/25/2020. The ventricles and sulci are within normal limits in size and configuration. Patchy and several small focal areas of increased signal intensity are seen within the periventricular and subcortical white matter of both cerebral hemispheres on the FLAIR and T2-weighted images consistent with areas of very mild small vessel ischemic disease. No acute parenchymal abnormality is seen. There is no MRI eviden ce of acute ischemia/infarction. No definite area of abnormal parenchymal contrast enhancement is see n. Innumerable metastasis are seen scattered throughout the skull, the skull base and visualized cervica l vertebrae. These measure 3 mm to 4.6 cm in size. These have increased in size and number slightly s alok the previous examination. Diffuse dural enhancement surrounds both cerebral hemispheres is again seen essentially unchanged. The clivus is expanded. A metastasis extends from the clivus to encase a nd extrinsically narrow the cavernous portion of the right internal carotid artery, unchanged. A metastasis is seen involving the right anterior clinoid process which extends to narrow the right o rbital apex. This measures 1 cm in size. It has not significantly changed. A metastasis is seen invol ving the superior lateral wall of the posterior aspect of the left orbit. This measures 2.5 cm in siz e. This has increased slightly since previous examination where it measured 2.1 cm in size. Symmetric metastasis are seen involving both lacrimal glands, unchanged. No intraconal mass is seen. The globe s and optic nerve sheath complexes of both orbits are within normal limits. The extraocular muscles a re within normal limits. There is a moderate to large sized left mastoid effusion. Mild mucosal thick ening in seen scattered throughout the paranasal sinuses. IMPRESSION: Innumerable metastasis are seen throughout the skull, skull base and orbits. The metastas is have largely increased slightly in size and number since the previous examination. No acute parenc hymal abnormality is seen. Electronically signed by: Armani Trinidad MD (11/21/2020 5:02 PM) [id number]
== END ==
LOC: KCIC MRI 14:38
PROVIDERS: ATTEND Radiology Radiation Oncology
DX: C79.51 Secondary malignant neoplasm of bone (principal)
CPT/HCPCS: 70543; A9575

== ENCOUNTER 2021-01-08 22:17 | Emergency (ER) | payer MEDICARE, OTHER ==
[2018-07-22 11:00] VITALS: BP 160/89
[~2021-01-08 22:17] MED LIST changes: -GADOTERATE 7.5 MMOL/15ML VIAL. IVP ONE
== END 2021-01-08 22:40 | disposition left against medical advice (07) ==
LOC: ER 22:17
DX: J02.9 Acute pharyngitis, unspecified (principal); K08.89 Other specified disorders of teeth and supporting structures; R68.2 Dry mouth, unspecified; Z53.21 Procedure and treatment not carried out due to patient leaving prior to being seen by health care provider

== ENCOUNTER 2021-03-10 16:08 | Emergency (ER) | payer OTHER ==
[2018-07-22 11:00] VITALS: BP 160/89
== END 2021-03-10 16:54 | disposition left against medical advice (07) ==
LOC: ER 16:08
DX: R52 Pain, unspecified (principal); Z53.21 Procedure and treatment not carried out due to patient leaving prior to being seen by health care provider